=== PATIENT | male | born 1985 | race Caucasian/White ===

== ENCOUNTER → 2017-05-29 | Outpatient (CLI) | payer BC ==
--- NOTE | 2017-05-29 15:53 | RADIOLOGY REPORT (SQ) ---
EXAM DESCRIPTION: NM HIDA SCAN WITH CCK COMPLETED DATE/TIME: 05/29/2017 3:26 pm REASON FOR STUDY: ABD PAIN (R10.9), EPIGASTRIC PAIN (R10.13) R10.9 UNSPECIFIED ABDOMINAL PAIN R10.1 3 EPIGASTRIC PAIN COMPARISON: None. RADIONUCLIDE AND DOSE: DOSAGE RADIONUCLIDE: 4.99 millicuries Tc99m Mebrofenin. DOSAGE CCK: 1.7 micrograms. DOSAGE MORPHINE: Not required. The route of agent administration: Intravenous TECHNIQUE: Serial imaging right upper quadrant up to 60 minutes following injection of radionuclide. CCK injected after gallbladder visualized. LIMITATIONS: None. FINDINGS: LIVER: Normal visualization without areas of photopenia. INTRA AND EXTRAHEPATIC BILE DUCTS: Normal accumulation of activity. GALLBLADDER: Normal visualization. Calculated Ejection Fraction of 24%. Below the normal value of 35 % or greater. PHYSICAL RESPONSE: Patients presenting complaint was not reproduced. OTHER: No other significant finding. IMPRESSION: LOW GALLBLADDER EJECTION FRACTION. EVIDENCE FOR BILIARY DYSKINESIS. NO CYSTIC OR COMMO N DUCT OBSTRUCTION. TECHNICAL DOCUMENTATION: JOB ID: [id number]- All Rights Reserved
== END ==
LOC: RAD 12:18
PROVIDERS: ATTEND Obstetrics & Gynecology
DX: R10.13 Epigastric pain (principal)
CPT/HCPCS: 78227; A9537; Q9969; J2805